=== PATIENT | female | born 1985 | race Caucasian/White ===

== ENCOUNTER → 2023-08-18 14:07 | Outpatient (REF) | payer BC, SELFPAY | LOC: WDC 14:07 | PROVIDERS: ATTENDING PHYSICIAN Family Medicine | DX: N64.4 Mastodynia (principal) | CPT/HCPCS: 76642; 77062; 77066 ==

== ENCOUNTER → 2023-08-21 17:25 | Outpatient (REF) | payer BC, SELFPAY | LOC: RAD 17:25 | PROVIDERS: ATTENDING PHYSICIAN Family Medicine | DX: N92.1 Excessive and frequent menstruation with irregular cycle (principal) | CPT/HCPCS: 76830; 76856 ==

== ENCOUNTER → 2023-09-29 09:59 | Outpatient (REF) | payer BC, SELFPAY | LOC: RAD 09:59 | PROVIDERS: ATTENDING PHYSICIAN Family Medicine | DX: N92.1 Excessive and frequent menstruation with irregular cycle (principal) | CPT/HCPCS: 76830; 76856 ==